=== PATIENT | male | born 1950 | race Caucasian/White ===

== ENCOUNTER 2016-12-28 14:14 | Emergency (ER) | payer MEDICARE, OTHER ==
[2016-12-28 14:52] LABS: HEMOGLOBIN 16.2 gm/dl (14.0-17.5); RED BLOOD COUNT 5.03 M/UL (4.20-5.50); WHITE BLOOD COUNT 14.9 K/UL (4.5-11.0)
[2016-12-28 15:08] LABS: BUN/CREATININE RATIO 17 (0-10)
[2017-02-22] MEDS ORDERED: LORTAB 5-325 M1 EACH PO (22:07)
[2017-02-22] MEDS ORDERED: VALIUM 5 MG TAB5 MG PO (22:08)
[2017-02-22] MEDS ORDERED: PRINIVIL20 MG PO (22:14)
[2017-02-22] MEDS ORDERED: ISOSORBIDE MONO30 MG PO (22:14)
[2017-02-22] MEDS ORDERED: COUMADIN6 MG PO (22:15)
[2017-03-15] MEDS ORDERED: HYDRALAZINE HCL50 MG PO (20:42)
[2017-03-15] MEDS ORDERED: COREG 3.125M3.125 MG PO (20:44)
[2017-03-15] MEDS ORDERED: SODIUM BICARBO650 M1 PO (20:45)
[2017-03-15] MEDS ORDERED: ZINC OXIDE OINT30 GM TOP (20:46)
[2017-03-15] MEDS ORDERED: SIMVASTATIN40 MG PO (22:14)
[2017-04-07] MEDS ORDERED: ASPIR 8181 MG PO (02:43)
[2017-04-07] MEDS ORDERED: CATAPRES 0.1MG0.1 MG PO (02:44)
== END 2016-12-28 16:10 | disposition short-term general hospital (02) ==
LOC: ER1 14:14
PROVIDERS: Emergency Medicine
DX: I73.9 Peripheral vascular disease, unspecified (principal); I10 Essential (primary) hypertension; D69.6 Thrombocytopenia, unspecified; E87.6 Hypokalemia; F17.200 Nicotine dependence, unspecified, uncomplicated; Z88.0 Allergy status to penicillin; Z88.5 Allergy status to narcotic agent
CPT/HCPCS: 36415; 80053; 82550; 82553; 83874; 84484; 85025; 85610; 85730; 93005; 93925; 93971; 96374; 96375; 96376; 99285; J1644; J2405